=== PATIENT | male | born 1975 | race Caucasian/White ===

== ENCOUNTER 2025-03-08 00:37 | Day surgery (SDC) | payer OTHER, SELFPAY ==
[2024-11-01 09:08] VITALS: BMI 31.6
[2025-02-27 10:02] VITALS: BMI 31.6
[2025-03-08 07:51] VITALS: BP 148/110; PULSE 84; RESP 18; TEMP 36.6; O2SAT 98
[2025-03-08] MEDS: LACTATED RINGERS 1,000 ML 150 ML IV CONT (08:06)
--- NOTE | 2025-03-08 08:31 | WPDANESEPPF ---
Anes - Initial Pre Proc Eval Procedure: Operation Date: 03/08/25 09:00 Proposed Procedures p Screening Colonoscopy - Nolan Hart MD Date/Time: 03/08/25 08:31 Surgeon: Nolan Hart MD Pre Op Diagnosis: Encounter for screening for malignant neoplasm of Patient Data Age: 49 Gender: M Height: 1.78 m Weight: 97.1 kg Last Vital Signs Temp 97.8 F 03/08/25 07:51 Pulse 84 03/08/25 07:51 Resp 18 03/08/25 07:51 BP 148/110 H 03/08/25 07:51 Pulse Ox 98 03/08/25 07:51 O2 Del Method Room Air 03/08/25 07:51 Allergies Allergy/AdvReac Type Severity Reaction Status Date / Time No Known Allergies Allergy Verified 03/08/25 07:50 Home Medications ?Medication ?Instructions ?Recorded ?Confirmed ?Type atorvastatin 10 mg tablet (Lipitor) 10 mg PO DAILY 11/01/24 02/27/25 History carvedilol 6.25 mg tablet 6.25 mg PO BID 11/01/24 11/01/24 History losartan 100 1 tablet PO DAILY 11/01/24 11/01/24 History mg-hydrochlorothiazide 25 mg tablet (Hyzaar) tadalafil 5 mg tablet (Cialis) 5 mg PO DAILY 11/01/24 11/01/24 History testosterone 100 mg/mL 100 mg IM WEEKLY 02/27/25 02/27/25 History intramuscular suspension Patient hx anesthesia problems: none Family hx anesthesia problems: none Results Review: All pre-operative results and documents have been reviewed as part of the pre-operative evaluation. [facility] Social History Social History Smoking status: Never smoker Alcohol intake: current Alcohol use details: Drinks monthly Substance use: never Substance use type: does not use Living arrangements: with family Spiritual care concerns: No Anes - Eval Final PreProcedure Day of Procedure 03/08/25 08:31 Patient weight: obese Lungs: normal air movement Airway: Mallampati scale class II Neurological: alert and oriented Last oral intake: >/= 8 hours ASA classification: II Emergent: no Anesthetic plan: proceed Anesthesia type and monitoring: general GIVS and standard monitoring Results Review: All pre-operative results and documents have been reviewed as part of the pre-operative evaluation. Hyperlipidemai, HTN. Informed Consent: The patient's anesthetic plan and its attendant risks and benefits were discussed with the patient/family/POA. Questions were solicited and answers provided to the satisfaction of the patient/family/POA.
--- NOTE | 2025-03-08 08:47 | PM.HPGS ---
History of Present Illness History of Present Illness Consent: Risks, benefits, and alternatives have been discussed and questions answered. Patient agrees to proceed with procedure. Chief complaint: Encounter for screening for malignant neoplasm of Narrative: Tracy Castillo is a 49 year old male with colon polyp 5 years ago Review of Systems Review of Systems: All systems reviewed & are unremarkable except as noted in HPI and below PMFSH Past Medical History Medical History (Updated 03/08/25 @ 08:48 by Nolan Hart MD) Colon polyp Social History Social History Smoking status: Never smoker Alcohol intake: current Alcohol use details: Drinks monthly Substance use: never Substance use type: does not use Living arrangements: with family Spiritual care concerns: No Meds Home Medications and Allergies Home Medications ?Medication ?Instructions ?Recorded ?Confirmed ?Type atorvastatin 10 mg tablet (Lipitor) 10 mg PO DAILY 11/01/24 02/27/25 History carvedilol 6.25 mg tablet 6.25 mg PO BID 11/01/24 11/01/24 History losartan 100 1 tablet PO DAILY 11/01/24 11/01/24 History mg-hydrochlorothiazide 25 mg tablet (Hyzaar) tadalafil 5 mg tablet (Cialis) 5 mg PO DAILY 11/01/24 11/01/24 History testosterone 100 mg/mL 100 mg IM WEEKLY 02/27/25 02/27/25 History intramuscular suspension Allergies Allergy/AdvReac Type Severity Reaction Status Date / Time No Known Allergies Allergy Verified 03/08/25 07:50 Vital Signs Vital Signs - 24 hr 03/08/25 07:51 Temperature 97.8 F Pulse Rate 84 Respiratory Rate 18 Blood Pressure 148/110 H Pulse Oximetry 98 Oxygen Delivery Room Air Exam Const: General: comfortable and no acute distress HENMT: Face/Nose/Sinus: Normal nares present Eyes: General: appearance normal, both eyes and all related structures Neck: Neck: no JVD Resp: Auscultation: clear to auscultation bilaterally Cardio: Rate: regular rate Rhythm: regular rhythm GI: Inspection: non-distended GI Palp: Yes Soft to palpation Skin: General skin exam: normal color Extrem: General: normal to inspection Psych: Mental Status: mental status grossly normal Assessment and Plan Assessment and plan (1) Colon polyp: Code(s): K63.5 - Polyp of colon Status: Acute Assessment and Plan: colonoscopy
--- NOTE | 2025-03-08 09:03 | S_PTH ---
PATIENT: Tracy Castillo LOC: [facility]#:[id number] AGE/SX: 49/M ROOM: RE03/08/[address]: Nolan Hart MD : 1975 BED: DIS: 03/08/2025 SPEC #: [id number] RECD: 03/08/25 11:36 STATUS: BINH OSBORNE #: [id number] JORDI: 03/08/25 09:[address]: Nolan Hart DEPT: [facility] Surgical RECD BY: Lana Allan Tissues: A - Colon Polypectomy B - Colon Polypectomy Procedures: Hematoxylin and Eosin Stain Gross and Microscopic Level 4
[2025-03-08 09:06] VITALS: BP 81/49; PULSE 72; RESP 18; O2SAT 99
[2025-03-08 09:16] VITALS: BP 121/87; PULSE 77; RESP 18; O2SAT 98
[2025-03-08 09:26] VITALS: BP 127/83; PULSE 79; RESP 19; O2SAT 97
== END 2025-03-08 09:44 | disposition home or self-care (01) ==
PROVIDERS: Visit Provider Internal Medicine Gastroenterology
PROC: 0DJD8ZZ Inspection of Lower Intestinal Tract, Via Natural or Artificial Opening Endoscopic (ICD-10-PCS; CPT 45378; principal; 2025-03-08 09:00)
DX: Z12.11 Encounter for screening for malignant neoplasm of colon (principal); D12.0 Benign neoplasm of cecum; D12.2 Benign neoplasm of ascending colon; K64.8 Other hemorrhoids; E78.5 Hyperlipidemia, unspecified; I10 Essential (primary) hypertension; E66.9 Obesity, unspecified; Z68.30 Body mass index [BMI] 30.0-30.9, adult
CPT/HCPCS: 45385; 88305; J2003; J2704; J7120